=== PATIENT | female | born 2000 | race Caucasian/White ===

== ENCOUNTER 2021-07-28 06:00 | Emergency (ER) | payer OTHER, SELFPAY ==
[2021-07-28 06:00] VITALS: PULSE 86; RESP 14; TEMP 36.3; BMI 22.4
[2021-07-28 06:03] VITALS: BP 124/82; PULSE 78; RESP 18; O2SAT 100
--- NOTE | 2021-07-28 06:12 | EKG12_ITS ---
Test Reason : CP Blood Pressure : / mmHG Vent. Rate : 078 BPM Atrial Rate : 078 BPM P-R Int : 148 ms QRS Dur : 086 ms QT Int : 400 ms P-R-T Axes : 065 056 061 degrees QTc Int : 456 ms Normal sinus rhythm with sinus arrhythmia Normal ECG Confirmed by DENISSE SHELL, SARAHY ([id number]), online content editor HEDY WHITING ([id number]) on 07/30/2021 9:08:35 AM Referred By: SYLVIA Confirmed By:SARAHY SALCEDO MD
--- NOTE | 2021-07-28 06:13 | ED.VIS.CHEST ---
HPI History of Present Illness Chief Complaint: Chest Pain Informant: patient Narrative Narrative: Patient is a 20-year-old female presenting with chest pressure. Patient states she started having sensation of pressure in her upper middle chest yesterday afternoon. She states it came on gradually. As she has been having it intermittently since. She notes that she got off work at 5 AM she has been having it more frequently. She states it last for about a minute at a time. She denies any aggravating or alleviating factors. She thinks it happens about every 15 minutes. She has some associated nausea but no vomiting. She tried taking Tums with no relief of the pain. She notes she also has some discomfort in her right arm. She is unsure if it is related or not. Patient notes she does frequently get lightheaded but states has been going on for some time. She denies any excessively heavy vaginal bleeding. She denies any black or blood in her stool. PFSH PFSH Home Medications NK 07/28/21 [History Last Taken Unknown] Allergy/AdvReac Type Severity Reaction Status Date / Time No Known Allergies Allergy Verified 07/28/21 06:03 Surgical History no surgical history Social History Smoking Status: Never smoker [facility] ED Constitutional Constitutional ED: Denies chills or fever(s) Eyes Eyes: Denies blurry vision or change in vision ENT ENT ED: Denies rhinorrhea or sore throat Cardiovascular Cardiovascular: Reports chest pain and palpitations Respiratory/Chest Respiratory/Chest: Denies cough or dyspnea Gastrointestinal Gastrointestinal: Denies abdominal pain, diarrhea, melena, nausea or vomiting Genitourinary Genitourinary ED: Denies dysuria or hematuria Musculoskeletal Musculoskeletal: Denies myalgias Integumentary Denies rash Neurologic Neurologic: Denies headache(s) or weakness Psychiatric Psychiatric: Denies depression EXAM Physical Exam Const Vital Signs: 07/28/21 06:00 07/28/21 06:03 07/28/21 06:04 Temperature 97.4 F L Temperature Source Oral Pulse Rate 86 78 Respiratory Rate 14 18 Respiratory Effort Normal Respiratory Pattern Normal Blood Pressure 124/82 H Blood Pressure Mean 96 Pulse Ox 100 Oxygen Delivery Method Room Air 07/28/21 06:14 Temperature Temperature Source Pulse Rate Respiratory Rate Respiratory Effort Respiratory Pattern Blood Pressure Blood Pressure Mean Pulse Ox Oxygen Delivery Method Room Air Positive well nourished and well developed General Appearance ED: well developed and pallor HEENT Reports moist mucous membranes normocephalic and atraumatic Eyes PERRL and EOMs intact bilaterally General Eye ED: Yes pale conjunctiva Neck supple Chest Wall inspection of chest normal and palpation of chest normal Resp normal respiratory effort and clear to auscultation bilaterally Cardio regular rate, regular rhythm and no murmurs GI normal to inspection, nondistended, normoactive bowel sounds and non-tender Extremity normal to inspection General Extremety ED: Negative for edema or tenderness General Extremity: Negative for edema Neuro oriented x3 and gait normal Sensorium / Orientation: awake and alert Psych mental status grossly normal Skin no rashes or lesions noted General Skin Exam: pallor Heart Score History: Slightly/Non-Suspicious ECG: Normal Age: </= 45 years Risk Factors: No Risk Factors Troponin: </= Normal Limit Score: 0 MDM MDM MDM Narrative Medical decision making narrative: Patient is evaluated for chest pain. It is in the center of her chest. She has of associated palpitations. Is been intermittent. Patient appears nontoxic no acute distress. Her vital signs are normal. EKG does not show any acute ischemic changes. Cardiac work-up obtained. Patient is found to be anemic with a hemoglobin of 9.0. She also has a mild thrombocytopenia with a platelet count of 100. She denies any active bleeding. She notes that she feels lightheaded but has been going on for quite some time. I suspect this is a chronic anemia. In addition her TSH is mildly elevated. Initial troponin is normal. Repeat troponin is pending. Anticipate discharge home with outpatient follow-up if repeat troponin is normal. Patient is counseled on her anemia and need for outpatient follow-up. I do think she is stable at this time does not require admission. Lab Data Attestation: I reviewed the patient's lab results. Labs: Laboratory Results - last 24 hr 07/28/21 07/28/21 06:05 06:05 WBC 5.4 RBC 3.15 L Hgb 9.0 L Hct 29.3 L MCV 93.0 MCH 28.6 MCHC 30.7 L RDW Std Deviation 56.1 H RDW Coeff of Isela 16.4 H Plt Count 100 L MPV 9.2 Immature Gran % (Auto) 0.200 Neut % (Auto) 40.8 L Lymph % (Auto) 47.0 H [place] % (Auto) 8.8 Eos % (Auto) 2.8 Baso % (Auto) 0.4 Absolute Neuts (auto) 2.2 Absolute Lymphs (auto) 2.52 Nucleated RBC % 0 Sodium 138 Potassium 3.5 Chloride 106 Carbon Dioxide 29.0 Anion Gap 3 L BUN 12 Creatinine 0.75 Estim Creat Clear Calc 117.68 Est GFR (MDRD) Af Amer 123 Est GFR (MDRD) Non-Af 101 BUN/Creatinine Ratio 16.0 Glucose 96 Calcium 8.8 Total Bilirubin 0.40 AST 13 L ALT 23 Alkaline Phosphatase 84 Troponin I High Sens 4 Total Protein 7.8 Albumin 3.8 Globulin 4.0 Albumin/Globulin Ratio 1.0 Lipase 100 TSH 4.06 H Radiography Chest X-Ray - ED: 2 View, Read by ED Physician, Read by Radiologist and Normal Diagnostic Testing: Clinical Impression(s) from Imaging Studies Chest X-Ray 07/28/21 06:25 IMPRESSION: Negative x-ray examination of the chest. Electronically Signed: Faizan Carolina MD at 6:38 EST Tel , Service support , Rhythm Strip Rhythm Strip: Sinus Rhythm Rate: 78 Ectopy: None EKG Initial EKG: Attestation: I personally reviewed and interpreted this EKG as follows: Interpretation: Sinus Rhythm Comments: Normal sinus rhythm at a rate of 78 Sinus arrhythmia present Normal intervals Normal axis Normal ST segments Discharge Plan Triage Chief Complaint: Chest Pain ED Provider: Tiffani Hinson Dx/Rx/DC Orders Clinical Impression: Chest pain of uncertain etiology, Anemia Instructions: ED Anemia, Type Not Specified (Adult), ED Chest Pain, Uncertain Cause Prescriptions: No Action NK RF: 0 Primary Care Provider: Kaveh Simmons Referrals: Kaveh Simmons MD [Primary Care Provider] - 3-5 Days Disposition Disposition: Home, Self Care
[2021-07-28 06:24] LABS: Absolute Lymphocyte Count 2.52 X10^3/uL (0.83-4.51); Absolute Neutrophil Count 2.2 X10^3/uL (2.0-7.7); Basophil# 0.02 X10^3/uL; Basophil% 0.4 % (0-1); Eosinophil# 0.15 X10^3/uL; Eosinophils% 2.8 % (0-5); Hematocrit 29.3 % (37-47); Lymphocyte # 2.52 X10^3/ul (0.83-4.51); Mean Corp Hgb Conc 30.7 g/dL (32-36); Mean Corpuscular Hgb 28.6 pg (27.0-32.0); Mean Platelet Vol. 9.2 fl (6.2-12.0); Monocyte# 0.47 X10^3/uL; Monocyte% 8.8 % (0-10); NRBC Flagged by Analyzer 0 % (0-5); Neutrophil # 2.19 X10^3/uL (2.7-7.7); Neutrophil % 40.8 % (47-70); Platelet Count 100 K/mm3 (150-450); RBC Distribution Width CV 16.4 % (11.6-14.6); RBC Distribution Width SD 56.1 fl (35.1-43.9); Red Blood Count 3.15 M/mm3 (4.2-5.4); White Blood Count 5.4 K/mm3 (4.4-11.0)
--- NOTE | 2021-07-28 06:25 | RAD_ITS ---
STUDY: X-RAY CHEST REASON FOR EXAM: Female, 21 years old. chest pain TECHNIQUE: PA and lateral COMPARISON: None. FINDINGS: The lungs are clear and expanded. There is no demonstrated pleural abnormality. Normal size heart. Normal mediastinum and daylin. Normal visualized pulmonary arteries. Normal visualized aortic arch and descending thoracic aorta. Normal visualized thoracic spine. Normal visualized ribs, clavicles, and shoulders. There is no demonstrated abnormality of the visualized soft tissue structures of the upper abdomen. RAD/Chest PA and Lateral IMPRESSION: Negative x-ray examination of the chest. Electronically Signed: Faizan Carolina MD at 6:38 EST Tel , Service support ,
[2021-07-28 07:01] LABS: AST(SGOT) 13 U/L (15-37); Alanine Aminotransfer ALT/SGPT 23 U/L (13-56); Albumin, Serum 3.8 g/dL (3.2-5.0); Alkaline Phosphatase 84 U/L (45-117); Anion Gap 3 (5-15); BUN 12 mg/dL (7-18); Calcium,Total 8.8 mg/dL (8.5-10.1); Chloride 106 mmol/L (98-107); Creatinine, Serum 0.75 mg/dL (0.55-1.02); EST Glomerular Filtration Rate 101 mL/min (>60); Est Glom Filt Rate - Afr Amer 123 mL/min (>60); Estimated Creatinine Clearance 117.68 ml/min; Glucose 96 mg/dL (74-106); Lipase 100 U/L (73-393); Potassium 3.5 mmol/L (3.5-5.1); Protein, Total 7.8 g/dL (6.4-8.2); Sodium Level 138 mmol/L (136-145); Thyroid Stim Hormone (TSH) 4.06 uIU/mL (0.358-3.74); Troponin-I HS 4 pg/mL (3.0-54.0)
[2021-07-28 08:51] LABS: Troponin-I HS 5 pg/mL (3.0-54.0)
[2021-07-28 10:38] VITALS: BP 119/75; PULSE 70; RESP 16; O2SAT 100
== END 2021-07-28 10:43 | disposition home or self-care (01) ==
PROVIDERS: Emergency Provider Emergency Medicine; PCP Pediatrics
DX: R07.89 Other chest pain (principal); D64.9 Anemia, unspecified
CPT/HCPCS: 71046; 80053; 83690; 84443; 84484; 85025; 93005; 99285; A4216